=== PATIENT | female | born 1990 | race Caucasian/White ===

== ENCOUNTER → 2020-11-19 09:17 | Outpatient (BNVA) | payer MEDICARE, MEDICAID, SELFPAY | PROVIDERS: Family Provider Family Medicine; PCP Family Medicine; Visit Provider Obstetrics & Gynecology | DX: Z01.419 Encounter for gynecological examination (general) (routine) without abnormal findings (principal) | CPT/HCPCS: 88175 ==

== ENCOUNTER 2022-04-24 03:53 | Emergency (ER) | payer MEDICARE, MEDICAID, SELFPAY ==
[2022-04-24 03:58] VITALS: BP 136/101; PULSE 103; RESP 20; TEMP 36.6; O2SAT 97; BMI 35.4
[2022-04-24] MEDS: morphine 4 mg/mL SDV 1 mL IVP ×2 (04:17→06:30)
[2022-04-24] MEDS: ketorolac 30 mg/mL INJ 15 MG IVP (04:18)
[2022-04-24] MEDS: sodium chloride 0.9% 1,000 ML 999 ML IV (04:18)
[2022-04-24] MEDS: ondansetron 2 mg/ML SDV 2 mL 4 MG IVP (04:18)
--- NOTE | 2022-04-24 04:28 | W.ED.ABDPA2 ---
HPI - Abdominal Pain General: Chief Complaint: Abdominal Pain Stated Complaint: ABD Pain Time Seen by Provider: 04/24/22 03:59 Source: patient and family History of Present Illness: 31-year-old female with sharp left lower quadrant pain that awoke her from sleep an hour prior to arrival. No nausea or vomiting. No diarrhea. She has not had pain like this in the past. She states she is not . MD elicited complaint: abdominal pain Pertinent past history: none Onset (ago): minute(s) Pain Consistency: constant Location: LLQ Severity: moderate Quality: stabbing and aching Radiation: none Exacerbating factors: movement Relieving factors: nothing Associated Symptoms: Denies anorexia, bloating, chills, dysuria, fever(s), hematemesis, loose stools, nausea and vomiting Review of Systems Const: Denies: fever(s) or chills ENMT: Denies: throat pain Card: Denies: chest pain Resp: Denies: dyspnea GI: Denies: nausea, vomiting, hematemesis or bloating : Denies: difficulty voiding or dysuria REPLACED BY [facility] ED PFSH: Medical History Dysmenorrhea Surgical History No pertinent past surgical history Family History Other Family history not known due to adoption Physical Exam Const: GENERAL APPEARANCE: cooperative and anxious HENMT: COMMON NORMALS: normocephalic, atraumatic and Normal external nose present HEAD & SCALP: normocephalic and atraumatic FACE & SINUS: normal facial exam and face symmetric NOSE: Normal external nose present Eye: COMMON NORMALS: Equal, round and reactive pupils present and EOMs intact bilaterally PUPIL: Yes Equal, round and reactive pupils present Neck/C-Spine: GENERAL: Yes trachea midline Chest: CHEST: Yes Symmetrical chest wall rise Resp: COMMON NORMALS: normal respiratory effort, No retractions, No use of accessory muscles and clear to auscultation bilaterally AUSCULTATION: clear to auscultation bilaterally Cardio: COMMON NORMALS: regular rate and regular rhythm RATE: regular rate RHYTHM: regular rhythm GI: COMMON NORMALS: Normal to inspection, nondistended, normoactive bowel sounds present PALPATION: Yes Tenderness to palpation present (GI) Details: LLQ : COMMON NORMALS: Yes no CVA tenderness BLADDER/KIDNEY EXAM: Yes no CVA tenderness Back/Pelvis: COMMON NORMALS: no CVA tenderness Extremity: COMMON NORMALS: no pedal edema Neuro: DAVID COMA SCALE: document GCS findings David coma scale eye opening: Spontaneous David coma scale verbal response: Orientated David coma scale motor response: Obey commands [place] coma scale total score: 15 SENSORY EXAM: Yes extremities (intact) Psych: COMMON NORMALS: speech normal SPEECH: Yes normal speech Skin: COMMON NORMALS: no rashes or lesions noted GENERAL SKIN EXAM: no rashes or lesions noted Course Vital Signs: Vital signs: Vital Signs Temperature 97.8 F 04/24/22 03:58 Pulse Rate 103 H 04/24/22 03:58 Respiratory Rate 20 H 04/24/22 03:58 Blood Pressure 136/101 04/24/22 03:58 Pulse Oximetry 97 04/24/22 03:58 Oxygen Delivery Me thod 04/24/22 03:58 MDM - Abdominal Pain Medical Decision Making Patient is not vomiting. No Leukocytosis. CBC and CMP are unremarkable. Urianalysis reveals hematuria with no infection. CT shows 0.5 millimeter distal ureter stone on the right consistent with her pain. She'll be treated conservatively with pain management, anti emetics, and Flomax. To return for any problems Lab Data 04/24/22 04:23 04/24/22 04:23 Labs/Radiology: Radiology Impressions Abdomen/Pelvis CT 04/24/22 05:00 IMPRESSION: 1. Left distal ureteral very tiny 0.5 mm calculus causes only slight obstruction. 2. Fecal filled colon. 3. A few other chronic findings above. Laboratory Results WBC 9.0 10^3/uL (4.0-10.0) 04/24/22 04:23 RBC 4.65 10^6/uL (4.1-5.3) 04/24/22 04:23 Hgb 12.6 g/dL (11.5-15.3) 04/24/22 04:23 Hct 39.5 % (37.0-47.0) 04/24/22 04:23 MCV 84.9 fl (81-99) 04/24/22 04:23 MCH 27.1 pg (28.0-34.0) L 04/24/22 04:23 MCHC 31.9 g/dL (30.0-36.0) 04/24/22 04:23 RDW 13.4 % (12.1-15.1) 04/24/22 04:23 Plt Count 264 10^3/cmm (130-400) 04/24/22 04:23 MPV 10.0 fL (7.4-10.4) 04/24/22 04:23 Neut % (Auto) 57.8 % 04/24/22 04:23 Lymph % (Auto) 30.7 % 04/24/22 04:23 [place] % (Auto) 8.5 % 04/24/22 04:23 Eos % (Auto) 2.2 % 04/24/22 04:23 Baso % (Auto) 0.6 % 04/24/22 04:23 Neut # (Auto) 5.19 10^3/uL (1.8-7.7) 04/24/22 04:23 Lymph # (Auto) 2.8 10^3/uL (0.8-4.8) 04/24/22 04:23 [place] # (Auto) 0.8 10^3/uL (0.2-0.9) 04/24/22 04:23 Eos # (Auto) 0.2 10^3/uL (0.0-0.8) 04/24/22 04:23 Baso # (Auto) 0.1 10^3/uL (0.0-0.1) 04/24/22 04:23 Nucleated RBC % (auto) 0 % 04/24/22 04:23 Nucleated RBCs # 0.0 /100WBC 04/24/22 04:23 Sodium 138 mmol/L (136-145) 04/24/22 04:23 Potassium 3.8 mmol/L (3.5-5.1) 04/24/22 04:23 Chloride 102 mmol/L (98-107) 04/24/22 04:23 Carbon Dioxide 25 mmol/L (22-29) 04/24/22 04:23 Anion Gap 14.8 (5-19) 04/24/22 04:23 BUN 7 mg/dL (6-20) 04/24/22 04:23 Creatinine 0.8 mg/dL (0.5-0.9) 04/24/22 04:23 GFR Calculation 83.1 mL/min (90-130) L 04/24/22 04: Glucose 112 mg/dL (65-115) 04/24/22 04:23 Calculated Osmolality 285 mOsm/kg (285-295) 04/24/22 04:23 Calcium 8.9 mg/dL (8.5-10.5) 04/24/22 04:23 Total Bilirubin 0.2 mg/dL (0.15-1.2) 04/24/22 04:23 AST 22 U/L (0-32) 04/24/22 04: ALT 28 U/L (0-33) 04/24/22 04: Alkaline Phosphatase 83 U/L (35-105) 04/24/22 04:23 C-Reactive Protein 28.5 mg/L (0.0-4.9) H 04/24/22 04:23 Total Protein 7.0 g/dL (6.6-8.7) 04/24/22 04:23 Albumin 4.0 g/dL (3.5-5.2) 04/24/22 04:23 Globulin 3.0 g/dL (1.3-4.6) 04/24/22 04:23 Lipase 22 U/L (13-60) 04/24/22 04:23 HCG, Qual Negative (Negative) 04/24/22 04:23 Urine Color Straw (Yellow) 04/24/22 05:49 Urine Appearance Hazy (CLEAR) A 04/24/22 05:49 Urine pH 7 (5-7) 04/24/22 05:49 Ur Specific Molt 1.000 (1.005-1.030) L 04/24/22 05:49 Urine Protein Neg (Negative) 04/24/22 05:49 Urine Glucose (UA) Norm (Normal) 04/24/22 05:49 Urine Ketones Negative (Negative) 04/24/22 05:49 Urine Blood 2+ (Negative) H 04/24/22 05:49 Urine Nitrate Negative (Negative) 04/24/22 05:49 Urine Bilirubin Neg (Negative) 04/24/22 05:49 Urine Urobilinogen Norm mg/dL (Negative) 04/24/22 05:49 Ur Leukocyte Esterase Trace (Negative) H 04/24/22 05:49 Urine RBC 0-4 /hpf (0-2) H 04/24/22 05:49 Urine WBC 15-25 /hpf (0-5) H 04/24/22 05:49 Ur Squamous Epith Cells 5-10 /hpf (0-5) H 04/24/22 05:49 Calcium Oxalate Crystal 0-4 /hpf H 04/24/22 05:49 Amorphous Sediment Not Reportable 04/24/22 05:49 Urine Bacteria 1+ /hpf (NONE) H 04/24/22 05:49 Urine Mucus Trace /hpf 04/24/22 05:49 Discharge Plan Discharge Patient Disposition: Home Clinical Impression: Ureterolithiasis Condition: Stable Prescriptions: New Percocet 7.5-325 mg tablet 1 tab PO Q6H PRN (Reason: pain) Qty: 10 0RF ondansetron 4 mg film 4 mg PO DAILY PRN (Reason: nausea and vomiting) Qty: 10 0RF Flomax 0.4 mg capsule 0.4 mg PO DAILY Qty: 7 0RF No Action multivitamin with minerals [Hair,Skin and Nails] Tablet 1 tab PO DAILY hydrocortisone 0.5 % cream 1 applic TOPICAL BID PRN (Reason: rash) Qty: 28.4 2RF levonorgestrel-ethinyl estrad [Aviane] 0.1-20 mg-mcg tablet 1 tab PO DAILY Qty: 84 6RF rosuvastatin [Crestor] 20 mg tablet 20 mg PO DAILY Qty: 90 6RF levocetirizine [Xyzal] 5 mg tablet 5 mg PO DAILY Qty: 90 6RF Discharge Orders: Discharge ED (Routine); Ordered 04/24/22 Ordered By: Ambrosio Anderson Referrals: Carmella Momin FNP [Primary Care Provider] - 1-3 days Patient Instructions: Kidney Stones (ED) Activity Restrictions/Additional Instructions: Take Flomax daily, as it can help you pass the stone. Other medications are as needed for pain and nausea. Return for fever greater than 100, vomiting liquids or medications, worsening pain despite treatment, any other concerning symptoms. Coding Level of Care Code ED Tree Specialist for Nick De La Rosa
[2022-04-24 04:32] LABS: Basophils # 0.1 10^3/uL (0.0-0.1); Basophils % 0.6 %; Eosinophils # 0.2 10^3/uL (0.0-0.8); Eosinophils % 2.2 %; Hematocrit 39.5 % (37.0-47.0); Hemoglobin 12.6 g/dL (11.5-15.3); Lymphocytes # 2.8 10^3/uL (0.8-4.8); Lymphocytes % 30.7 %; Mean Corpuscular HGB Conc 31.9 g/dL (30.0-36.0); Mean Corpuscular Hemoglobin 27.1 pg (28.0-34.0); Mean Corpuscular Volume 84.9 fl (81-99); Monocytes # 0.8 10^3/uL (0.2-0.9); Monocytes % 8.5 %; Neutrophils # 5.19 10^3/uL (1.8-7.7); Neutrophils % 57.8 %; Nucleated Red Blood Cells % 0 %; Platelet Count 264 10^3/cmm (130-400); Red Blood Count 4.65 10^6/uL (4.1-5.3); Red Cell Distribution Width 13.4 % (12.1-15.1)
[2022-04-24 04:48] LABS: HCG, Serum Qual Negative (Negative)
[2022-04-24 04:52] LABS: Alanine Aminotransferase 28 U/L (0-33); Alkaline Phosphatase 83 U/L (35-105); Anion Gap 14.8 (5-19); Aspartate Amino Transferase 22 U/L (0-32); Blood Urea Nitrogen 7 mg/dL (6-20); C Reactive Protein 28.5 mg/L (0.0-4.9); Calcium 8.9 mg/dL (8.5-10.5); Carbon Dioxide 25 mmol/L (22-29); Chloride 102 mmol/L (98-107); Glomerular Filtration Rate 83.1 mL/min (90-130); Glucose 112 mg/dL (65-115); Lipase 22 U/L (13-60); Osmolality Calculated 285 mOsm/kg (285-295); Potassium 3.8 mmol/L (3.5-5.1); Sodium 138 mmol/L (136-145); Total Bilirubin 0.2 mg/dL (0.15-1.2)
--- NOTE | 2022-04-24 05:00 | CTR_ITS ---
PROCEDURE INFORMATION: Exam: CT Abdomen And Pelvis With Contrast Exam date and time: 04/24/2022 5:12 AM Age: 31 years old Clinical indication: Abdominal pain; Localized; Left lower quadrant (llq); Additional info: Llq pain TECHNIQUE: Imaging protocol: Computed tomography of the abdomen and pelvis with contrast. Radiation optimization: All CT scans at this facility use at least one of these dose optimization techniques: automated exposure control; mA and/or kV adjustment per patient size (includes targeted exams where dose is matched to clinical indication); or iterative reconstruction. Contrast material: OMNI 350; Contrast volume: 100 ml; Contrast route: INTRAVENOUS (IV); REPORTING DATA: Count of CT and Cardiac NM exams in prior 12 months: This patient has received 0 known CTs and 0 known cardiac nuclear medicine studies in the 12 months prior to the current study. COMPARISON: CT abdomen pelvis w con* [id number] 06/30/2015 8:33 AM RADIATION DOSE METRICS: Total DLP (mGy-cm): 1042 FINDINGS: Lungs: Minimal lung base atelectasis. Liver: Unremarkable. No enhancing mass. Gallbladder and bile ducts: No calcified gallstones or biliary dilation identified. Pancreas: Unremarkable with no suspicious mass. No ductal dilation. Spleen: The spleen is not enlarged. No suspicious enhancing mass is noted. Adrenal glands: Normal. No mass. Kidneys and ureters: Minimal left hydronephrosis. No solid renal mass or significant right hydronephrosis. Left distal ureteral 0.5 mm calculus causes minimal obstruction. See series 5, image 91. Stomach and bowel: The colon is quite fecal filled. No small bowel dilation. Mild descending colon wall thickening, which probably relates to nondistention. Appendix: Normal appendix. Intraperitoneal space: Unremarkable. No free air. No suspicious fluid collection. Vasculature: No AAA or acute vascular lesion identified. Lymph nodes: No enlarged lymph nodes. Urinary bladder: Unremarkable as visualized. Reproductive: Unremarkable as visualized. Bones/joints: No acute fracture. Soft tissues: No acute or suspicious finding noted. CT/CT abdomen pelvis w con* [id number] IMPRESSION: 1. Left distal ureteral very tiny 0.5 mm calculus causes only slight obstruction. 2. Fecal filled colon. 3. A few other chronic findings above.
[2022-04-24] MEDS: iohexol 350 mg/mL 500 mL Btl (per mL) IV (05:20)
[2022-04-24 06:18] LABS: Add Urine Microscopic? YES; Bilirubin Urine Neg (Negative); Blood Urine 2+ (Negative); Glucose Urine UA Norm (Normal); Ketones Urine Negative (Negative); Leukocyte Esterase Urine Trace (Negative); Nitrate Urine Negative (Negative); Protein Urine Neg (Negative); RBC Urine 0-4 /hpf (0-2); Urine Appearance Hazy (CLEAR); Urine Color Straw (Yellow); Urobilinogen Urine Norm (Negative); pH Urine 7 (5-7)
[2022-04-24 06:19] LABS: Bacteria Urine 1+ /hpf; WBC Urine 15-25 /hpf (0-5)
[2022-04-24 06:20] LABS: Add Urine Culture? Yes; Calcium Oxalate Crystals Urine 0-4 /hpf; Mucus Urine TRACE /hpf
== END 2022-04-24 06:47 | disposition home or self-care (01) ==
PROVIDERS: Emergency Provider Emergency Medicine; PCP Nurse Practitioner Family
DX: N20.1 Calculus of ureter (principal)
CPT/HCPCS: 74177; 80053; 81001; 83690; 84703; 85025; 86140; 87086; 96361; 96374; 96375; 96376; 99285; J1885; J2270; J2405; J7030; Q9967

== ENCOUNTER 2023-09-04 09:04 | Emergency (ER) | payer MEDICARE, MEDICAID, SELFPAY ==
[2023-09-04 09:08] VITALS: BP 139/91; PULSE 123; RESP 18; TEMP 36.6; O2SAT 97; BMI 34.5
--- NOTE | 2023-09-04 09:17 | W.ED.WOUNDLC ---
HPI - Wound/Laceration General: Chief Complaint: Wound/Laceration Stated Complaint: finger wound, severed (?) Time Seen by Provider: 09/04/23 09:09 Source: patient Mode of arrival: ambulatory Limitations: no limitations History of Present Illness: Patient is a 32-year-old female who presents to ED today for evaluation of a laceration to her left index finger that she sustained just prior to arrival after she was cutting okra and the knife accidentally cut her finger. Bleeding is controlled upon arrival. Last tetanus is unknown. Onset (ago): hour(s) Extremity Location: Left: hand (index finger) Place: home Patient tetanus UTD: No Context: accidental Associated symptoms: Reports no associated symptoms Treatments prior to arrival: bandage Review of Systems Musc: Reports: extremity pain Skin/Breast: Reports: other (laceration finger) Neuro: Denies: numbness in extremities, weakness in extremities or sensory changes [facility] ED PFSH: Medical History Dysmenorrhea Surgical History No pertinent past surgical history Family History Other Family history not known due to adoption Social History Substance/Drug Use: never Physical Exam Const: COMMON NORMALS: no acute distress, no limitations, alert and well nourished Extremity: LEFT UPPER EXTREMITY: Yes hand & digits (see below) Left hand and digits: Yes ROM (normal) and Yes neurovascular exam (normal) Fingers-Fingertip Front+Back: 1. pt has a small 2mm flap laceration to distal L index fingertip; no nail involvement; no bleeding Neuro: COMMON NORMALS: moves all extremities, no focal motor deficits and no sensory deficits noted SENSORIUM/ORIENTATION: Yes alert Skin: TRAUMA: laceration Course Vital Signs: Vital signs: Vital Signs Temperature 97.8 F 09/04/23 09:08 Pulse Rate 123 H 09/04/23 09:08 Respiratory Rate 18 09/04/23 09:08 Blood Pressure 139/91 09/04/23 09:08 Pulse Oximetry 97 09/04/23 09:08 Oxygen Delivery Me thod Room Air 09/04/23 09:08 [facility] - Wound/Laceration Medical Decision Making Wound was copiously irrigated. Tetanus updated. Small Steri-Strip placed over flap laceration. This should heal perfectly fine. Wound care/infection precautions at home discussed. XR imaging is not needed. Differential Diagnosis Likely laceration Medical Records I reviewed the patient's medical records. No radiology studies performed this visit Discharge Plan Discharge Patient Disposition: Home Clinical Impression: Laceration of left index finger Qualifiers: Encounter type: initial encounter Damage to nail status: without damage Foreign body presence: without foreign body Qualified Code(s): S61.211A - Laceration without foreign body of left index finger without damage to nail, initial encounter Condition: Stable Prescriptions: No Action multivitamin with minerals [Hair,Skin and Nails] Tablet 1 tab PO DAILY hydrocortisone 0.5 % cream 1 applic TOPICAL BID PRN (Reason: rash) Qty: 28.4 2RF levonorgestrel-ethinyl estrad [Aviane] 0.1-20 mg-mcg tablet 1 tab PO DAILY Qty: 84 6RF rosuvastatin [Crestor] 20 mg tablet 20 mg PO DAILY Qty: 90 6RF levocetirizine [Xyzal] 5 mg tablet 5 mg PO DAILY Qty: 90 6RF azithromycin 250 mg tablet See Rx Instructions PO .COMPLEX Qty: 6 0RF Rx Instructions: take 500 mg today (day 1), then 250 mg for 4 days (days 2-5) PO ondansetron 4 mg film 4 mg PO DAILY PRN (Reason: nausea and vomiting) Qty: 10 0RF Flomax 0.4 mg capsule 0.4 mg PO DAILY Qty: 7 0RF Discharge Orders: Discharge ED (Routine); Ordered 09/04/23 Ordered By: Kati Rasheed Referrals: Carmella Momin, RECEPTIONIST CLERK [Primary Care Provider] - Activity Restrictions/Additional Instructions: Keep wound clean with warm soap and water. Monitor for signs of infection such as redness, swelling, increased pain, drainage, streaking up your hand, or fevers. Please add medical re-evaluation if these occur. Steri-Strips should fall off within the next week or so. Coding Level of Care Code ED Mechanic Industrial Truck for Nick De La Rosa
[2023-09-04] MEDS: tetanus-dipt-pertussis 0.5 mL SDV IM (09:40)
[2023-09-04 09:44] VITALS: BP 123/75; PULSE 111; O2SAT 96
== END 2023-09-04 09:45 | disposition home or self-care (01) ==
PROVIDERS: Emergency Provider Physician Assistant; PCP Nurse Practitioner Family
DX: S61.211A Laceration without foreign body of left index finger without damage to nail, initial encounter (principal); W26.0XXA Contact with knife, initial encounter; Y93.G1 Activity, food preparation and clean up; Z23 Encounter for immunization
CPT/HCPCS: 90471; 90715; 99283

== ENCOUNTER → 2024-01-07 08:43 | Outpatient (BNVA) | payer MEDICARE, MEDICAID, SELFPAY | PROVIDERS: PCP Nurse Practitioner Family; Visit Provider Nurse Practitioner Women's Health | DX: N93.9 Abnormal uterine and vaginal bleeding, unspecified (principal) | CPT/HCPCS: 76830 ==

== ENCOUNTER → 2024-06-10 18:41 | Outpatient (BNVA) | payer MEDICARE, MEDICAID, SELFPAY | PROVIDERS: PCP Nurse Practitioner Family; Visit Provider Emergency Medicine | DX: S97.111A Crushing injury of right great toe, initial encounter (principal); W31.89XA Contact with other specified machinery, initial encounter | CPT/HCPCS: 73630 ==

== ENCOUNTER → 2024-08-12 09:31 | Outpatient (BNVA) | payer MEDICARE, MEDICAID, SELFPAY | PROVIDERS: PCP Nurse Practitioner Family; Visit Provider Internal Medicine | DX: E07.9 Disorder of thyroid, unspecified (principal); R00.0 Tachycardia, unspecified; F41.9 Anxiety disorder, unspecified; E05.90 Thyrotoxicosis, unspecified without thyrotoxic crisis or storm | CPT/HCPCS: 36415; 83516; 84439; 84443; 84480; 86376; 86800; 99204 ==

== ENCOUNTER → 2024-10-14 08:41 | Outpatient (BNVA) | payer MEDICARE, MEDICAID, SELFPAY | PROVIDERS: PCP Nurse Practitioner Family; Visit Provider Internal Medicine | DX: E07.9 Disorder of thyroid, unspecified (principal); E05.90 Thyrotoxicosis, unspecified without thyrotoxic crisis or storm; F41.9 Anxiety disorder, unspecified | CPT/HCPCS: 99214 ==

== ENCOUNTER 2024-10-16 09:06 | Outpatient (CLI) | payer MEDICARE, MEDICAID, SELFPAY ==
[2024-10-16 11:10] LABS: Free T4 Free Thyroxine 1.20 ng/dL (0.82-1.77); Thyroid Stimulating Hormone 1.26 uIU/mL (0.27-4.20)
== END 2024-10-16 09:07 | disposition home or self-care (01) ==
LOC: LAB 09:12
PROVIDERS: PCP Nurse Practitioner Family; Visit Provider Internal Medicine
DX: E05.90 Thyrotoxicosis, unspecified without thyrotoxic crisis or storm (principal); E07.9 Disorder of thyroid, unspecified
CPT/HCPCS: 84439; 84443; 84480

== ENCOUNTER → 2024-10-29 13:02 | Outpatient (BNVA) | payer MEDICARE, MEDICAID, SELFPAY | PROVIDERS: PCP Nurse Practitioner Family; Referring Provider Nurse Practitioner Family; Visit Provider Internal Medicine | DX: R00.0 Tachycardia, unspecified (principal); E05.90 Thyrotoxicosis, unspecified without thyrotoxic crisis or storm | CPT/HCPCS: 93005; 99204 ==

== ENCOUNTER 2024-11-14 13:42 | Outpatient (CLI) | payer MEDICARE, MEDICAID, SELFPAY ==
--- NOTE | 2024-11-14 13:30 | US_ITS ---
WS: [id number] THYROID ULTRASOUND HISTORY: Nodule. COMPARISON: 09/17/2024 Right lobe: 1.5 cm x 1.6 cm x 4.7 cm (w x ap x l). Volume: 5.3 cm3. Normal sized thyroid. Normal echotexture. There is a single hypoechoic nodule associated with the posterior inferior RIGHT thyroid. Hypoechoic nodule measures 0.6 x 0.4 x 0.6 cm. No echogenic focus. No increased vascularity. Left lobe: 1.4 cm x 1.1 cm x 5.0 cm (w x ap x l). Volume: 3.5 cm3. Normal size and echotexture. No significant or dominant nodules are present. Isthmus: 0.2 cm. US/US thyroid [id number] IMPRESSION: 1. TI-RADS 4; hypoechoic nodule posterior RIGHT thyroid. As per TI-RADS criter ia and recommendations, ultrasound follow-up in 1, 2, 3 and 5 years. This is a very small nodule. Suggest consideration also for parathyroid nodule due to its location against the inferior posterior thyroid. This nodule is not embedded w ithin the thyroid gland. 2. No LEFT thyroid nodule.
== END 2024-11-14 13:43 | disposition home or self-care (01) ==
LOC: RAD 13:42
PROVIDERS: PCP Nurse Practitioner Family; Visit Provider Internal Medicine
DX: E04.1 Nontoxic single thyroid nodule (principal)
CPT/HCPCS: 76536

== ENCOUNTER 2024-12-01 11:42 | Outpatient (CLI) | payer MEDICARE, MEDICAID, SELFPAY ==
--- NOTE | 2024-12-01 12:00 | USCV_ITS ---
Juan Mccormick Age: 34 Gender: F : 1990 Exam Date: 12/01/2024 12:11 Ordering Phys: Zenon Mead M.D ([email or web address]) Technologist: Exam Location[place] [facility] [place]: cp sob BP: 125 / 70 HR: 92 Rhythm: Sinus Technical Quality: Adequate MEASUREMENTS (Male / Female) Normal Values 2D ECHO LV Ejection Fraction MOD 4C 61.5 % LV Ejection Fraction MOD 2C 53.7 % LV Ejection Fraction 2C AL 54.3 % RA Systolic Volume 4C AL 39.1 ml RA Systolic Volume 4C MOD 36.3 ml M-MODE LA Ao Ratio MM 1.2 AV Cusp Separation MM 2.3 cm DOPPLER AV Peak Velocity 133.0 cm/s LVOT Peak Velocity 83.0 cm/s MV Peak Velocity 101.0 cm/s MV Area PHT 4.9 cm squared Mitral E to A Ratio 1.3 TR Peak Velocity 199.0 cm/s TR Peak Gradient 15.8 mmHg TV Peak E Velocity 74.0 cm/s PV Peak Velocity 117.0 cm/s FINDINGS Left Ventricle Normal left ventricular size, systolic function and wall thickness, with no regional wall motion abnormalities. Left ventricular ejection fraction is estimated at 60 %. Normal diastolic function. Right Ventricle Normal right ventricular size and systolic function. Right Atrium Normal right atrial size. Left Atrium Normal left atrial size. IA Septum Normal appearance of the interatrial septum. Mitral Valve Mildly thickened mitral valve. No mitral valve stenosis. Trace mitral valve regurgitation. Aortic Valve Mild aortic valve calcification. No aortic valve stenosis. Trace aortic valve regurgitation. Tricuspid Valve Normal tricuspid valve structure. No tricuspid valve stenosis or regurgitation. Normal pulmonary pressure. Pulmonic Valve Trace pulmonary valve regurgitation. Pericardium No pericardial effusion. Aorta Normal diameter of the aortic root and ascending thoracic aorta. IVC Normal IVC diameter. CONCLUSIONS Normal left ventricular size, systolic function and wall thickness, with no regional wall motion abnormalities. Left ventricular ejection fraction is estimated at 60 %. Normal diastolic function. Mild aortic valve calcification. No aortic valve stenosis. Trace aortic valve regurgitation. Mildly thickened mitral valve. No mitral valve stenosis. Trace mitral valve regurgitation. There is no pericardial effusion. Right atrial pressure is around 5 mm of mercury. Aarti Mancera MD (Electronically Signed) Final Date: 11 December 2024 20:36 S
== END 2024-12-01 11:43 | disposition home or self-care (01) ==
LOC: RAD 11:46
PROVIDERS: PCP Nurse Practitioner Family; Visit Provider Internal Medicine
DX: R07.9 Chest pain, unspecified (principal); R06.02 Shortness of breath; I05.9 Rheumatic mitral valve disease, unspecified; I35.8 Other nonrheumatic aortic valve disorders
CPT/HCPCS: 93306

== ENCOUNTER → 2024-12-30 11:59 | Outpatient (BNVA) | payer MEDICARE, MEDICAID, SELFPAY | PROVIDERS: PCP Nurse Practitioner Family; Visit Provider Internal Medicine | DX: R00.0 Tachycardia, unspecified (principal) | CPT/HCPCS: 99213 ==